=== PATIENT | female | born 1965 | race Caucasian/White ===

== ENCOUNTER → 2017-09-09 08:03 | Outpatient (CLI) | payer BC, SELFPAY ==
[2017-09-09 10:07] LABS: Alanine Aminotransferase 37 U/L (12-78); Albumin Level 4.2 gm/dL (3.4-5.0); Albumin/Globulin Ratio 1.2 (1.1-1.8); Alkaline Phosphatase 92 U/L (46-116); Anion Gap 13.6 mEq/L (5-15); Aspartate Amino Transferase 27 U/L (15-37); Bilirubin,Total 0.5 mg/dL (0.2-1.0); Blood Urea Nitrogen 17 mg/dL (7-18); Calcium 9.4 mg/dL (8.5-10.1); Carbon Dioxide 27 mmol/L (21.0-32.0); Chloride 107 mmol/L (98-107); Chol/HDL Ratio 4.8 (1-3.5); Cholesterol 193 mg/dL (140-200); Creatinine,Serum 0.62 mg/dL (0.55-1.02); Estimated Glomerular Filt Rate 100 ml/min (>60); GFR (African American) 121 ML/MIN (>60); Globulin 3.6 gm/dl (1.3-3.2); Glucose 134 mg/dL (74-106); HDL Cholesterol 40 mg/dL (29-89); LDL Cholesterol 117 mg/dL (0-130); Potassium 4.6 mmoL/L (3.5-5.1); Sodium 143 mmol/L (136-145); Total Protein,Serum 7.8 gm/dL (6.4-8.2); Triglycerides 178 mg/dL (30-200); VLDL Cholesterol 36 mg/dL (0-40)
== END ==
PROVIDERS: Visit Provider Family Medicine
DX: E78.5 Hyperlipidemia, unspecified (principal); I10 Essential (primary) hypertension
CPT/HCPCS: 36415; 80053; 80061

== ENCOUNTER 2024-04-09 09:01 | Outpatient (CLI) | payer BC, SELFPAY ==
--- NOTE | 2024-04-09 09:06 | XR_ITS ---
FINAL REPORT TECHNIQUE: Bone densitometry calculations of the lumbar spine and left hip were obtained. CLINICAL HISTORY: MENOPAUSAL STATE COMPARISON: None FINDINGS: Using L1-4, the bone mineral density of the spine is 0.956 g/cm2, corresponding to T-score of -0.8. Using the left hip, the bone mineral density of the femoral neck is 0.825 g/cm2, corresponding to a T-score of -1.0. NOTE: T-score: Standard deviation compared with peak bone mass of young adult mean. *Following the recommendations of the International Society of Bone densitometry, classification of hip BMD is based on the lower of two T-scores; total hip or femoral neck. IMPRESSION: Normal bone mineral density of the lumbar spine and left hip. Reviewed, Interpreted and Dictated by Manolo Medel III, MD Transcribed by Valery Lira Authenticated and [facility]
== END 2024-04-09 23:59 | disposition home or self-care (01) ==
LOC: RAD 09:02
PROVIDERS: PCP Family Medicine; Visit Provider Family Medicine
DX: N95.1 Menopausal and female climacteric states (principal)
CPT/HCPCS: 77080

== ENCOUNTER 2024-04-18 07:40 | Outpatient (CLI) | payer BC, SELFPAY ==
--- NOTE | 2024-04-18 | CA_ITS ---
APPROVED REPORT EXAM: Comprehensive 2D, Doppler, and color-flow Echocardiogram [employer] Manager: EDENILSON Toussaint, RVS Ht: 5 ft 5 in Wt: 171lbs BSA: 1.85 BP: 124/69 mmHg Rhythm: PVC's Indications: Palpitations 2D Dimensions Left Atrium 3.93 cm F: 2.7 - 3.8 LA Volume 52.10 mL LA Volume Index 28.16 mL/m2 (M/F) 16-34 M-Mode Dimensions RVDd 3.15 cm (0.9-2.6) LA Diam 4.17 cm (1.9-4.0) LVDd 3.87 cm (3.5-5.7) LVDs 2.88 cm (3.5-5.7) IVSd 1.14 cm (0.6-1.1) PWd 0.91 cm (0.6-1.1) EF (Teich) 51.00% EPSs 0.50 cm FS 25.60% EDV (Teich) 64.70 mL TAPSE 2.30 (<1.7) ESV (Teich) 31.70 mL LV Diastology E Decel Time 190 (160-240 msec) E/A Ratio 1.13 MED A' 10.10 cm/s LAT A' 14.30 cm/s Aortic Valve ANAY Index 1.35 cm2/m2 AoV Peak Star. 143.0 (50-130 cm/s) AO Peak GR. 8.10 mmHg AO Mean GR. 4.10 (<5 mmHg) AO VTI 29.0 (18-25 cm) ANAY (VTI) 2.56 (2.5-4.5 cm2) Mitral Valve MV A Velocity 71.0 (40-130 cm/s) E/A Ratio 1.13 Pulmonary Valve PV Peak Velocity 90.0 (50-150 cm/s) Tricuspid Valve TR P. Velocity 199.00 cm/s Left Ventricle The left ventricle is normal size. The left ventricular systolic function is normal. The left ventricular ejection fraction is within the normal range. There is increased LV wall thickness. There is normal LV segmental wall motion. Transmitral Doppler flow pattern suggests impaired LV relaxation. LVEF is 55%. Right Ventricle The right ventricle is normal size. The right ventricular systolic function is normal. Atria The left atrium size is normal. The right atrium size is normal. There is no Doppler evidence of interatrial shunt. Aortic Valve The aortic valve opens well. There is no aortic valvular stenosis. No aortic regurgitation is present. Mitral Valve The mitral valve is normal in structure. No evidence of mitral valve stenosis. Mild mitral regurgitation. Tricuspid Valve Tricuspid valve is grossly normal in structure and function. Trace tricuspid regurgitation. There is insufficient TR jet to estimate RVSP. Pulmonic Valve The pulmonary valve is normal in structure. Trace pulmonic regurgitation. Great Vessels The aortic root is normal in size. The ascending aorta is not well-visualized. IVC is normal in size and collapses >50% with inspiration. Pericardium There is no pericardial effusion. Other Information Study Quality: Fair Conclusion Normal biventricular systolic function. Mild MR. Electronically signed by : Carly Mckeon MD 04/28/2024 23:17:22
== END 2024-04-18 23:59 | disposition home or self-care (01) ==
PROVIDERS: PCP Family Medicine; Visit Provider Family Medicine
DX: R00.2 Palpitations (principal); I05.1 Rheumatic mitral insufficiency
CPT/HCPCS: 93306

== ENCOUNTER 2024-05-20 08:17 | Outpatient (CLI) | payer BC, SELFPAY | END 2024-05-20 23:59 | disposition home or self-care (01) | LOC: RT 08:18 | PROVIDERS: PCP Family Medicine; Visit Provider Family Medicine | DX: R00.2 Palpitations (principal) | CPT/HCPCS: 93225; 93227 ==